=== PATIENT | female | born 1975 | race Caucasian/White ===

== ENCOUNTER 2021-08-23 08:01 | Emergency (ER) | payer BC, OTHER ==
[~2021-08-23] VITALS: Ht 167.6 cm; Wt 100.0 kg
[2021-08-23 08:05] VITALS: BP 134/74
[2021-08-23] MEDS ORDERED: NAPR-56 PO (09:29)
[2021-08-23] MEDS ORDERED: CYCL-1 PO (09:29)
[2021-08-23] MEDS ORDERED: naproxen 500mg tablet PO ONE (09:30)
--- NOTE | 2021-08-23 09:40 | NUR ---
Pt given and understands d/c instructions. Ambulatory with a steady gait.
== END 2021-08-23 09:40 | disposition home or self-care (01) ==
LOC: ER 08:01
DX: M79.18 Myalgia, other site (principal); M54.2 Cervicalgia; M79.602 Pain in left arm; M25.551 Pain in right hip; Z88.8 Allergy status to other drugs, medicaments and biological substances; Z79.899 Other long term (current) drug therapy; V87.7XXA Person injured in collision between other specified motor vehicles (traffic), initial encounter; Y93.89 Activity, other specified; Y92.89 Other specified places as the place of occurrence of the external cause; Y99.8 Other external cause status
CPT/HCPCS: 99283